=== PATIENT | female | born 1960 | race Two or more races ===

== ENCOUNTER → 2017-04-09 | Outpatient (CLI) | payer OTHER ==
--- NOTE | ~2017-04-09 | MY29 ---
[facility] A Service of [facility] & [facility] RADIOLOGY TEXT RESULTS PATIENT: RENÉE TRUJILLO LOCATION: [facility] : 62 UNIT #: [id number] AGE: [address]: MELY HERNANDEZ APRN SEX: F ORDER DR: [id number] [facility] [address] [place], [place] [address] [id number] O MR#: [id number] Acc #: [id number] NAME: RENÉE TRUJILLO : 1960 SEX: F STUDY DATE/TIME: 04/09/2017 9:15 UNIT: [facility] ROOM: STUDY DESCRIPTION: [facility] SCREENING W/ CAD BILAT Attending Physician: Mely Hernandez Referring Physician: Maryellen Hernandez M.D. Ordering Physician: Maryellen Hernandez M.D. Primary Care Physician: Salomón Briggs M.D. MEDICAL IMAGING REPORT This report is preliminary unless electronic signature is present EXAM Bilateral digital screening mammogram with CAD Date: 04/09/2017 HISTORY A 56-year-old female with family history of breast cancer in her sister diagnosed at age 44. No personal history of breast cancer or current complaints. COMPARISON Bilateral screening mammogram 02/07/2016 and 12/23/2014. TECHNIQUE CC and MLO views were obtained of each breast utilizing digital technique and reviewed with an FDA-approved CAD device. Heterogeneously dense fibroglandular tissue is present bilaterally. No new or developing nodule, architectural distortion or clustered microcalcification is appreciated. IMPRESSION BIRADS 2. Benign findings. Routine bilateral screening mammogram is recommended in 1 year. Patients over the age of 40 are entered into a reminder system with target due date for the next mammogram. A result letter will also be sent to the patient. BIRADS: 2 Benign Finding [facility] A Service of [facility] & [facility] RADIOLOGY TEXT RESULTS PATIENT: RENÉE TRUJILLO LOCATION: [facility] : 62 UNIT #: [id number] AGE: [address]: MELY HERNANDEZ APRN SEX: F ORDER DR: Dictated by... Nicole Lowe M.D. THIS IS AN ELECTRONICALLY VERIFIED REPORT Nicole Lowe M.D. at 04/11/2017 9:33 PM CHARLINE/marlo TD: 04/09/2017 12:07 JOB #: [id number] MEDICAL IMAGING REPORT Page 1 of 1 COPY
== END | disposition home or self-care (01) ==
LOC: CWCC 08:48
DX: Z12.31 Encounter for screening mammogram for malignant neoplasm of breast (principal); Z80.3 Family history of malignant neoplasm of breast
CPT/HCPCS: G0202